=== PATIENT | female | born 2000 | race Two or more races ===

== ENCOUNTER 2025-02-27 08:11 | Outpatient (AMB) | payer MEDICAID, SELFPAY ==
--- NOTE | 2025-02-27 08:13 | AMB.OBINITIA ---
Vital Signs 02/27/25 08:24 Height 1.63 m Height Method Stated Weight 68.209 kg Weight Measurement Method Standing Scale BMI 25.8 BP 122/84 Blood Pressure Source Automatic Cuff Blood Pressure Location Left Upper Arm Position Sitting Respiration 18 Pulse 98 Pulse Source Monitor Temp 97.8 F Temp Source Oral Pulse Oximetry (%) 99 Oxygen Delivery Method Room Air Allergies/Home Meds Allergies & Medications Allergies No Known Allergies Allergy (Verified 02/27/25 08:25) Medication Reconciliation No Known Home Medications 02/27/25 [History Confirmed 02/27/25] Intake Visit Data Collection New Patient or Established: New Patient (never been to [facility]) Reason for Visit:: TRANSFER INITIAL CARE Seen by Clinical Staff ONLY (RN/MA): No Vocational Psychologist Required: No Do You Feel Safe at Home: Yes Authorities Contacted: N/A PCP or OBGYN visit in last 3 months: Yes Hx Now: Yes Are you currently on any form of Control: No Last menstrual period: 07/20/24 Pain Present Currently: No Pain Scale Used: Delgado-Milligan/Numerical Pain scale:: 0 Smoking Status Smoking Status: Never smoker Immunizations Flu Vaccine in the Last 12 Months: No Flu Vaccine Exclusion Criteria: No Exclusion Criteria Questionnaires Covid-19 Vaccine Questionnaire Has patient been vacinated for Covid-19 Have you been vacinated for Covid-19: Yes PHQ-9 PHQ-2 Over the last 2 weeks, how often have you been bothered by any of the following problems? 1. Little interest or pleasure in doing things: not at all 2. Feeling down, depressed, or hopeless: not at all Total score: 0 PHQ-9 3. Trouble falling or staying asleep, or sleeping too much: Not at all 4. Feeling tired or having little energy: Not at all 5. Poor appetite or overeating: Not at all 6. Feeling bad about yourself - or that you are a failure or have let yourself or your family down: Not at all 7. Trouble concentrating on things, such as reading the newspaper or watching television: Not at all 8. Moving or speaking so slowly that other people could have noticed? - Or the opposite - being so fidgety or restless that you have been moving around a lot more than usual: not at all 9. Thoughts that you would be better off or of hurting yourself in some way: Not at all Total score: 0 Source: Developed by Drs. Ben Altamirano, Fiordaliza Kennedy, Jonathan Restrepo and colleagues, with an educational daivd from [employer]. Depression screen completed yes Social History Living Situation History Marital Status: Lives With: Family Housing: House Tobacco History Smoking Status: Never smoker Second Hand Smoke Exposure: No Alcohol History Alcohol Intake: Never Domestic Abuse History Do You Feel Safe at Home: Yes History of Present Illness HPI Narrative This is a 24-year-old 1 para 0 for OBI. Patient is a transfer from Dr. Toth's office at 32 weeks with records. She reports that she has not had any problems with the so far. She began her care while she was in [place]. She was given a Tdap around 26 weeks. Her last period is July 14, 2024. And this gives due date April 20, 2025. She had her first ultrasound here at [facility] on February 06, 2025. Patient was 30 weeks and this confirmed dates. Normal anatomy normal fluid was shown. Patient denies any existence of chronic illnesses. Denies social habits. Denies surgeries. Patient is O+, antibody screen negative, RPR nonreactive, rubella nonimmune, HIV negative, hepatitis B-, hep C negative, GC and Chlamydia negative. Her carrier screens were negative. She had normal 1 hour. And her A1c 5 point. Reports good movement. Denies leaking, bleeding, contractions OB Initial Visit OB Flowsheet OB Flowsheet Initial Weight: Not Recorded Date <del>?</del> EGA Weight BP Alb Glu CTX Pres Fundal ht FHR Mov Dilation Station Effacement Hx Notes Visit Note 02/27/25 <del>?</del> 32w 4d 68.209 kg 122/84 absent unknown 31 145 active 24-year-old 1 para [address] Toth's office with records. Her last. July 14, 2024. Estimated due date June 21, 2024. Patient had a 30-week ultrasound January that confirmed dates. She reports movement. Denies leaking, bleeding, contractions Reviewed labs with patient. Discussed labor precautions. Advised kick count twice a day. Increase fluids. Return in 2 weeks OB Menstrual History Menstrual reliability: definite Flow: normal Menstrual regularity: regular Monthly: Yes Age at menarche: 14 On control pills at conception: No Associated symptoms (LMP): Denies amenorrhea, nausea, vomiting, fatigue, breast tenderness, urinary frequency, irritability, bloating or other OB History : 1 # of Living Children: 0 Infection History & Risk Evaluation History of STDs: none Genetic Screening & History Genetic Screening/Teratology Counseling - Includes patient, baby's father, or anyone in either family with: 1. Patient's age 35 years or older as of estimated date of delivery: No 2. Thalassemia (Malawian, Kiswahili, Mediterranean, or Background); MCV less than 80: No 3. Neural Tube Defect (Meningomyelocele, Spina Bifida, or Anencephaly): No 4. Congenital Heart Defect: No 5. Down Syndrome: No 6. Dayday-Sachs (Ashkenazi Rastafarian, Cajun, Latvian [place]): No 7. Hernandez Disease (Ashkenazi Rastafarian): No 8. Familial Dysautonomia (Ashkenazi Rastafarian): No 9. Sickle Cell Disease or Trait (): No 10. Hemophilia or other blood disorders: No 11. Muscular Dystrophy: No 12. Cystic Fibrosis: No 13. [place]'s Chorea: No 14. Mental Retardation/Autism: No 15. Other inherited genetic or chromosomal disorder: No 16. Maternal Metabolic Disorder (EG,TYPE 1 Diabetes, PKU): No 17. Patient or baby's father had a child with defects not listed above: No 18. Recurrent loss or a stillbirth: No 19. Medications (including supplements, vitamins, herbs or otc drugs)/illicit/recreational drugs/alcohol since last menstrual period: No 20. Any other: No Infection History 1. Live with someone with TB or exposed to TB: No 2. Rash or viral illness since last menstrual period: No 3. Hepatitis B,C: No Other (see comments) Source: [employer] Review of Systems Review of Systems Systems Reviewed: All systems reviewed, normal except as documented Constitutional Constitutional: Denies fatigue Gastrointestinal Gastrointestinal: Denies bloating, Denies nausea and Denies vomiting Genitourinary Genitourinary: Denies amenorrhea and Denies urinary frequency Psychiatric Psychiatric: Denies irritability Endocrine Endocrine: Denies fatigue Exam General Limitations: no limitations General Appearance: alert, in no apparent distress, comfortable, cooperative, healthy appearing, well developed and well groomed Head Head exam: atraumatic, normocephalic and normal inspection ENT ENT exam: Present normal exam, normal oropharynx and mucous membranes moist Chest Chest inspection: Present normal inspection and symmetric chest wall rise Resp Respiratory exam: Present normal lung sounds bilaterally Card Cardiovascular exam: Present regular rate, normal rhythm and normal heart sounds Abdominal Abdominal exam: Present soft and normal bowel sounds Extremities Extremities exam: Present normal inspection and full ROM Psych Psychiatric exam: Present normal affect and normal mood Office Procedures OBC Clinic LOC & Office Proc's Nursing/Assessment Patient Status: Initial/New Patient OB Clinic Nursing Assessment: Medication Reconciliation, Update PMH in EMR and Vital Signs OB Clinic Coordination of Care: Complex Care and Chronic Disease 1-5, Consent,records obtained, informed consent, Education Simp Pt/Fam, 1 Ins Authorization, Lab and Imaging orders, Results/Orders obtained and Staff clarify orders Special Needs: Heart tones New Patient Charge New Patient Point Assignment: [id number] New Patient Point Charge: MODEL MAKER SCALE Level 4 ([id number]) Assessment & Plan Diagnosis / Problem List (1) High risk case management patient in third trimester: Status: Acute Plan Review records and dates with patient. Discussed labor precautions. Kick count twice a day. Continue prenatals. Return in 2 weeks at which Additional Plan Follow Up: 2 Weeks (obc)
[2025-02-27 08:24] VITALS: BP 122/84; PULSE 98; RESP 18; TEMP 36.6; O2SAT 99; BMI 25.8
== END 2025-02-27 09:06 | disposition home or self-care (01) ==
LOC: HODSOBC 08:11
PROVIDERS: Supervising Provider Advanced Practice Midwife; Visit Provider Advanced Practice Midwife
DX: O09.93 Supervision of high risk pregnancy, unspecified, third trimester (principal); Z3A.32 32 weeks gestation of pregnancy
CPT/HCPCS: 99204; G0463

== ENCOUNTER 2025-03-13 08:01 | Outpatient (AMB) | payer MEDICAID, SELFPAY ==
--- NOTE | 2025-03-13 08:04 | OBCLNT_ITS ---
Vital Signs 03/13/25 08:05 Height 1.63 m Height Method Stated Weight 70.477 kg Weight Measurement Method Standing Scale BMI 26.5 BP 114/76 Blood Pressure Source Automatic Cuff Blood Pressure Location Right Upper Arm Position Sitting Respiration 18 Pulse 111 H Pulse Source Monitor Temp 98.1 F Temp Source Temporal Artery Scan Pulse Oximetry (%) 98 Oxygen Delivery Method Room Air Allergies/Home Meds Allergies & Medications Allergies No Known Allergies Allergy (Verified 03/13/25 08:07) Medication Reconciliation No Known Home Medications 02/27/25 [History Confirmed 03/13/25] Intake Visit Data Collection New Patient or Established: Established Patient (seen at [facility] within 3 years) Reason for Visit:: OBC Seen by Clinical Staff ONLY (RN/MA): No Drilling Supervisor Required: No Do You Feel Safe at Home: Yes Authorities Contacted: N/A PCP or OBGYN visit in last 3 months: Yes Date of Last PCP or OBGYN visit: 02/27/25 Hx Now: Yes Are you currently on any form of Control: No Pain Present Currently: No Pain Scale Used: Delgado-Milligan/Numerical Pain scale:: 0 Smoking Status Smoking Status: Never smoker Immunizations Flu Vaccine in the Last 12 Months: No Flu Vaccine Exclusion Criteria: No Exclusion Criteria Questionnaires Covid-19 Vaccine Questionnaire Has patient been vacinated for Covid-19 Have you been vacinated for Covid-19: Yes PHQ-9 PHQ-2 Over the last 2 weeks, how often have you been bothered by any of the following problems? 1. Little interest or pleasure in doing things: not at all 2. Feeling down, depressed, or hopeless: not at all Total score: 0 PHQ-9 3. Trouble falling or staying asleep, or sleeping too much: Not at all 4. Feeling tired or having little energy: Not at all 5. Poor appetite or overeating: Not at all 6. Feeling bad about yourself - or that you are a failure or have let yourself or your family down: Not at all 7. Trouble concentrating on things, such as reading the newspaper or watching television: Not at all 8. Moving or speaking so slowly that other people could have noticed? - Or the opposite - being so fidgety or restless that you have been moving around a lot more than usual: not at all 9. Thoughts that you would be better off or of hurting yourself in some way: Not at all Total score: 0 If you checked off any problems, how difficult have these problems made it for you to do your work, take care of things at home, or get along with other people?: not difficult at all Source: Developed by Drs. Ben Altamirano, Fiordaliza Kennedy, Jonathan Restrepo and colleagues, with an educational david from [employer]. Depression screen completed yes Social History Living Situation History Marital Status: Lives With: Family Housing: House Tobacco History Smoking Status: Never smoker Second Hand Smoke Exposure: No Alcohol History Alcohol Intake: Never Domestic Abuse History Do You Feel Safe at Home: Yes Care OB Visit Log OB Flowsheet Initial Weight: Not Recorded Date -?-?-?-?-?-?-?-?-?-?-?-?- EGA Weight BP Alb Glu CTX Pres Fundal ht FHR Mov Dilation Station Effacement Hx Notes Visit Note 02/27/25 -?-?-?-?--?-?-?-?-?-?-?-?- 32w 4d 68.209 kg 122/84 absent unknown 31 145 active 24-year-old 1 para [address] Toth's office with records. Her last. July 14, 2024. Estimated due date June 21, 2024. Patient had a 30-week ultrasound January that confirmed dates. She reports movement. Denies leaking, bleeding, contractions Reviewed labs with patient. Discussed labor precautions. Advised kick count twice a day. Increase fluids. Return in 2 weeks OB 03/13/25 -?-?-?-?-?-?-?-?-?-?-?-?- 34w 4d 70.477 kg 114/76 absent cephalic 33 145 active Fetus active per patient. Denies leaking, bleeding, contractions. Discussed weight. Discussed labor precautions. Kick count twice a day. Reviewed diet a bit with patient and GBS next visit ADOLFO Calculator Estimated Delivery Date Method Current WG Current Estimate 04/20/25 LMP (Certain) 34w 4d Other Estimates 04/13/25 Ultrasound #1 35w 4d 04/20/25 Manual 34w 4d final adolfo: 04/09 07/04 Notes Visit Date: 02/27/25 Last Updated by: Yesenia Sanders CNM sono: 02/06/25: IUP 30 week, EDC: 04/13/25. O+,abs-. rpr;;nr, rub NI, HBSAG-,HIV-,HC-, GC/CT-. 1 hr wnl, carrier screen-, A1: 5.2 Office Procedures OBC Clinic LOC & Office Proc's Nursing/Assessment Patient Status: Established Patient OB Clinic Nursing Assessment: Medication Reconciliation, Update PMH in EMR and Vital Signs OB Clinic Coordination of Care: Complex Care and Chronic Disease 1-5, Education Complex Pt/Fam, Consent,records obtained, informed consent and Staff clarify orders Special Needs: Heart tones Established Patient Charge Established Patient Point Assignment: 120 Established Patient Point Charge: EP Level 4 (120-155) Assessment & Plan Diagnosis / Problem List (1) High risk case management patient in third trimester: Status: Acute Plan Discussed labor precautions and labor precautions. Kick count twice a day. Continue prenatals. Increase fluids. Discussed danger signs and symptoms and ER precautions return the week OB check Ibutop and Dr. Hernandez Additional Plan Follow Up: 1 Week (obc)
[2025-03-13 08:05] VITALS: BP 114/76; PULSE 111; RESP 18; TEMP 36.7; O2SAT 98; BMI 26.5
== END 2025-03-13 09:02 | disposition home or self-care (01) ==
LOC: HODSOBC 08:01
PROVIDERS: Supervising Provider Advanced Practice Midwife; Visit Provider Advanced Practice Midwife
DX: O09.93 Supervision of high risk pregnancy, unspecified, third trimester (principal); Z3A.34 34 weeks gestation of pregnancy
CPT/HCPCS: 99214; G0463

== ENCOUNTER 2025-03-29 08:12 | Outpatient (AMB) | payer MEDICAID, SELFPAY ==
[2025-03-29 08:25] VITALS: BP 125/85; PULSE 98; RESP 18; TEMP 36.6; O2SAT 98; BMI 27.3
--- NOTE | 2025-03-29 08:25 | OBCLNT_ITS ---
Vital Signs 03/29/25 08:25 Height 1.63 m Height Method Stated Weight 72.688 kg Weight Measurement Method Standing Scale BMI 27.3 BP 125/85 H Blood Pressure Source Automatic Cuff Blood Pressure Location Left Upper Arm Position Sitting Respiration 18 Pulse 98 Pulse Source Monitor Temp 97.8 F Temp Source Oral Pulse Oximetry (%) 98 Oxygen Delivery Method Room Air Allergies/Home Meds Allergies & Medications Allergies No Known Allergies Allergy (Verified 03/29/25 08:25) Medication Reconciliation No Known Home Medications 02/27/25 [History Confirmed 03/29/25] Immunizations Immunizations Flu Vaccine in the Last 12 Months: No Flu Vaccine Exclusion Criteria: Refused by Patient Care OB Visit Log OB Flowsheet Initial Weight: Not Recorded Date -?-?-?-?-?-?-?-?-?-?-?-?- EGA Weight BP Alb Glu CTX Pres Fundal ht FHR Mov Dilation Station Effacement Hx Notes Visit Note 02/27/25 -?-?-?-?-?-?-?-?-?-?-?-?- 32w 4d 68.209 kg 122/84 absent unknown 31 145 active 24-year-old 1 para [address] Toth's office with records. Her last. July 14, 2024. Estimated due date June 21, 2024. Patient had a 30-week ultrasound January that confirmed dates. She reports movement. Denies leaking, bleeding, contractions Reviewed labs with patient. Discussed labor precautions. Advised kick count twice a day. Increase fluids. Return in 2 weeks OB 03/13/25 -?-?-?-?-?-?-?-?-?-?-?-?- 34w 4d 70.477 kg 114/76 absent cephalic 33 145 active Fetus active per patient. Denies leaking, bleeding, contractions. Discussed weight. Discussed labor precautions. Kick count twice a day. Reviewed diet a bit with patient and GBS next visit 03/29/25 -?-?-?-?-?-?-?-?-?-?-?-?- 36w 6d 72.688 kg 125/85 absent cephalic 36 145 active Patient had many questions about labor and . Discussed reports good movement. Denies leaking, bleeding, contractions GBS today. We discussed all her questions about labor and signs symptoms of labor and ER precautions and comfort measures during labor and pain management return in a week OB check ADOLFO Calculator Estimated Delivery Date Method Current WG Current Estimate 04/20/25 LMP (Certain) 36w 6d Other Estimates 04/13/25 Ultrasound #1 37w 6d 04/20/25 Manual 36w 6d final adolfo: 04/09 07/04 Notes Visit Date: 02/27/25 Last Updated by: Yesenia Sanders CNM sono: 02/06/25: IUP 30 week, EDC: 04/13/25. O+,abs-. rpr;;nr, rub NI, HBSAG-,HIV-,HC-, GC/CT-. 1 hr wnl, carrier screen-, A1: 5.2 Office Procedures OBC Clinic LOC & Office Proc's Nursing/Assessment Patient Status: Established Patient OB Clinic Nursing Assessment: Medication Reconciliation, Update PMH in EMR and Vital Signs OB Clinic Coordination of Care: Complex Care and Chronic Disease 1-5, Consent,records obtained, informed consent, Education Simp Pt/Fam, 1 Ins Authorization, Lab and Imaging orders, Results/Orders obtained and Staff clarify orders Special Needs: Heart tones Established Patient Charge Established Patient Point Assignment: 150 Established Patient Point Charge: EP Level 4 (120-155) Assessment & Plan Diagnosis / Problem List (1) High risk case management patient in third trimester: Status: Acute Plan Discussed labor precautions. Discussed labor management. Discussed danger signs symptoms ER precautions. And comfort measures during labor and GBS today Additional Plan Follow Up: 1 Week (obc)
== END 2025-03-29 09:15 | disposition home or self-care (01) ==
LOC: HODSOBC 08:12
PROVIDERS: Supervising Provider Advanced Practice Midwife; Visit Provider Advanced Practice Midwife
DX: O09.93 Supervision of high risk pregnancy, unspecified, third trimester (principal); Z3A.36 36 weeks gestation of pregnancy; Z36.85 Encounter for antenatal screening for Streptococcus B; Z28.21 Immunization not carried out because of patient refusal
CPT/HCPCS: 99214; G0463

== ENCOUNTER 2025-04-09 08:13 | Outpatient (AMB) | payer MEDICAID, SELFPAY ==
[2025-04-09 08:32] VITALS: BP 121/82; PULSE 101; RESP 18; TEMP 36.7; O2SAT 98; BMI 27.7
--- NOTE | 2025-04-09 08:32 | OBCLNT_ITS ---
Vital Signs 04/09/25 08:32 Height 1.63 m Height Method Stated Weight 73.595 kg Weight Measurement Method Standing Scale BMI 27.7 BP 121/82 Blood Pressure Source Automatic Cuff Blood Pressure Location Right Upper Arm Position Sitting Respiration 18 Pulse 101 H Pulse Source Monitor Temp 98.1 F Temp Source Temporal Artery Scan Pulse Oximetry (%) 98 Oxygen Delivery Method Room Air Allergies/Home Meds Allergies & Medications Allergies No Known Allergies Allergy (Verified 04/09/25 08:34) Medication Reconciliation No Known Home Medications 02/27/25 [History Confirmed 04/09/25] Immunizations Immunizations Flu Vaccine in the Last 12 Months: No Flu Vaccine Exclusion Criteria: Refused by Patient Care OB Visit Log OB Flowsheet Initial Weight: Not Recorded Date -?-?-?-?-?-?-?-?-?-?-?-?- EGA Weight BP Alb Glu CTX Pres Fundal ht FHR Mov Dilation Station Effacement Hx Notes Visit Note 02/27/25 -?-?-?-?-?-?-?-?-?-?-?-?- 32w 4d 68.209 kg 122/84 absent unknown 31 145 active 24-year-old 1 para [address] Toth's office with records. Her last. July 14, 2024. Estimated due date June 21, 2024. Patient had a 30-week ultrasound January that confirmed dates. She reports movement. Denies leaking, bleeding, contractions Reviewed labs with patient. Discussed labor precautions. Advised kick count twice a day. Increase fluids. Return in 2 weeks OB 03/13/25 -?-?-?-?-?-?-?-?-?-?-?-?- 34w 4d 70.477 kg 114/76 absent cephalic 33 145 active Fetus active per patient. Denies leaking, bleeding, contractions. Discussed weight. Discussed labor precautions. Kick count twice a day. Reviewed diet a bit with patient and GBS next visit 03/29/25 -?-?-?-?-?-?-?-?-?-?-?-?- 36w 6d 72.688 kg 125/85 absent cephalic 36 145 active Patient had many questions about labor and . Discussed reports good movement. Denies leaking, bleeding, contractions GBS today. We discussed all her questions about labor and signs symptoms of labor and ER precautions and comfort measures during labor and pain management return in a week OB check 04/09/25 -?-?-?-?-?-?-?-?-?-?-?-?- 38w 3d 73.595 kg 121/82 absent cephalic 37 145 active Reports good movement. Occasional pressure. Denies leaking or bleeding. Discussed GBS results. Discussed labor precautions and kick count. And danger signs. Comfort measures for labor. Return in a week OB check ADOLFO Calculator Estimated Delivery Date Method Current WG Current Estimate 04/20/25 LMP (Certain) 38w 3d Other Estimates 04/13/25 Ultrasound #1 39w 3d 04/20/25 Manual 38w 3d final adolfo: 04/09 07/04 Notes Visit Date: 04/09/25 Last Updated by: Yesenia Sanders CNM GBS- Visit Date: 02/27/25 Last Updated by: Yesenia Sanders CNM sono: 02/06/25: IUP 30 week, EDC: 04/13/25. O+,abs-. rpr;;nr, rub NI, HBSAG-,HIV-,HC-, GC/CT-. 1 hr wnl, carrier screen-, A1: 5.2 Office Procedures OBC Clinic LOC & Office Proc's Nursing/Assessment Patient Status: Established Patient OB Clinic Nursing Assessment: Medication Reconciliation, Update PMH in EMR and Vital Signs OB Clinic Coordination of Care: Complex Care and Chronic Disease 1-5, Education Complex Pt/Fam, Consent,records obtained, informed consent, Lab and Imaging orders, Results/Orders obtained and Staff clarify orders Special Needs: Heart tones Established Patient Charge Established Patient Point Assignment: 140 Established Patient Point Charge: EP Level 4 (120-155) Assessment & Plan Diagnosis / Problem List (1) High risk case management patient in third trimester: Status: Acute Plan Discussed labor precautions. Kick count twice a day. Discussed danger signs symptoms. Return in a week OB check Additional Plan Follow Up: 1 Week (obc)
== END 2025-04-09 08:40 | disposition home or self-care (01) ==
LOC: HODSOBC 08:13
PROVIDERS: Supervising Provider Advanced Practice Midwife; Visit Provider Advanced Practice Midwife
DX: O09.93 Supervision of high risk pregnancy, unspecified, third trimester (principal); Z3A.38 38 weeks gestation of pregnancy; Z28.21 Immunization not carried out because of patient refusal
CPT/HCPCS: 99214; G0463

== ENCOUNTER 2025-04-15 15:48 | Observation (INO) | payer MEDICAID, SELFPAY ==
[2025-04-15] VITALS (7 sets, daily range): BP systolic 128–138; BP diastolic 77–87; PULSE 101–125; RESP 18–99; TEMP 37.1; O2SAT 98–100; BMI 29.3
== END 2025-04-15 19:37 | disposition home or self-care (01) ==
LOC: S4SX 16:11 → S4NX 17:45 → S4SX 17:48
PROVIDERS: Admitting Provider Obstetrics & Gynecology; Visit Provider Obstetrics & Gynecology
DX: O47.1 False labor at or after 37 completed weeks of gestation (principal); Z3A.39 39 weeks gestation of pregnancy
CPT/HCPCS: 59025; 59899

== ENCOUNTER 2025-04-16 08:28 | Inpatient (IN) | payer MEDICAID, SELFPAY ==
[2025-04-16] VITALS (213 sets, daily range): BP systolic 109–158; BP diastolic 53–94; PULSE 91–170; RESP 17–20; TEMP 36.8–38; O2SAT 93–100; BMI 28.7
[2025-04-16] MEDS: RINGERS LACTATED 1000 ML 1,000 ML 100 ML IV ×3 (09:00→10:58)
[2025-04-16 09:21] LABS: Basophils # (Auto) 0.0 Thou/mm3 (0.0-0.2); Basophils % (Auto) 0 % (0-2.5); Eosinophils # (Auto) 0.0 Thou/mm3 (0.0-0.5); Eosinophils % (Auto) 0 % (0-10); Hematocrit 41.7 % (36.0-46.0); Hemoglobin 13.6 g/dL (12.0-16.0); Immature Granulocytes Auto 0.06 Thou/mm3 (0.00-0.00); Lymphocytes # (Auto) 1.4 Thou/mm3 (1.0-4.8); Lymphocytes % (Auto) 9 % (10-50); Mean Corpuscular HGB Conc 32.6 g/dl (31.0-37.0); Mean Corpuscular Hemoglobin 28.1 pg (25.0-35.0); Mean Corpuscular Volume 86 fL (80-100); Monocytes # (Auto) 0.8 Thou/mm3 (0.0-0.8); Monocytes % (Auto) 5 % (0-12); Neutrophils # (Auto) 13.4 Thou/mm3 (1.8-7.7); Neutrophils % (Auto) 85 % (37-80); Nucleated Red Blood Cell # 0.00 Thou/mm3 (0.00-0.00); Nucleated Red Blood Cell % 0 /100 WBC (0); Platelet Count 224 Thou/mm3 (140-440); RDW Standard Deviation 48.8 fL (36.4-46.3); Red Blood Count 4.84 Miln/mm3 (4.00-5.20); White Blood Count 15.7 Thou/mm3 (3.6-11.0)
[2025-04-16] MEDS: fentaNYL CIT INJ 50 mCg/ML AMP 2ML 100 MCG IV (09:28)
[2025-04-16 09:57] LABS: Syphilis Nonreactive (Nonreactive)
--- NOTE | 2025-04-16 10:52 | EKG_ITS ---
[facility] Test Date: 2025-04-16 Pat Name: OTILIA PETERSON [facility] Physical Therapy Aide: ANDREW : 2000 Requested By: Kimmie Martinez Order Number: [id number] Reading MD: Kimmie Martinez Measurements Intervals [place] Rate: 120 P: 55 MD: 153 QRS: 71 QRSD: 76 T: 30 QT: 305 QTc: 432 Interpretive Statements SINUS TACHYCARDIA ABNORMAL RHYTHM ECG No previous ECG available for comparison /store/S0/[id number]/ecg/[id number].pdf
[2025-04-16 11:20] LABS: Amphetamine/Metham Scrn,Ur OB Negative (Negative); Benzoylecgonine Screen, Ur OB Negative (Negative); Opiate Screen,Urine OB Negative (Negative); THC Screen,Urine OB Negative (Negative)
[2025-04-16 15:22] LABS: Thyroid Stimulating Hormone 1.75 uIU/mL (0.55-4.78)
[2025-04-16 15:41] LABS: COVID-19 Antigen (In-House) Negative (Negative)
[2025-04-16 16:17] LABS: Influenza A Ag Negative; Influenza B Ag Negative
--- NOTE | 2025-04-16 17:16 | PD.LDHP ---
Documentation for date of: 04/16/25 OB Labor/Induct. HPI History of Present Illness Chief complaint: labor : 1 Para: 0 Term pregnancies: 0 pregnancies: 0 Living children: 0 History of Abortions: Spontaneous and Elective: 0 History of Vaginal deliveries: 0 History of sections: No History of : No ADOLFO: 04/20/25 Gestational Age (weeks): 39 Gestational Age (days): 3 History of present illness: contractions History of Present Dating criteria: based on LMP only Adequate Care: Yes Ultrasounds: normal mid trimester US Obstetrical complications: none Medical complications: none Labs Maternal Blood Type: O Pos Labs: Negative: RPR, Hepatitis B, Rubella Titre, HIV, Chlamydia, Gonorrhea and Group Beta Strep and Unknown: Herpes Type 1, Herpes Type 2 and Covid-19 Review of Systems Review of Systems Systems Reviewed: All systems reviewed, normal except as documented Narrative Review of Systems: has had a fast pulse rate / asymptomatic between 120 to occ at 140bpm Past Medical History Surgical History SURGICAL: Negative Section Meds Home Medications and Allergies Home Medications ?Medication ?Instructions ?Recorded ?Confirmed ?Type vits no.130-ferrous fum 1 tab PO DAILY 04/15/25 04/16/25 History 27 mg iron-folic acid 800 mcg tablet ( Vitamin) Allergies Allergy/AdvReac Type Severity Reaction Status Date / Time No Known Allergies Allergy Verified 04/16/25 09:19 OB Exam Physical Exam Vital signs: Temp Pulse Resp BP Pulse Ox 98.8 F 130 H 18 131/82 H 95 04/16/25 16:09 04/16/25 17:02 04/16/25 16:09 04/16/25 17:02 04/16/25 17:15 Narrative: Size equal to dates uterus non tender regular/ contractions non tender FHR is category 1 feta presentation is vertex cervix complete and AROM done / clear amniotic fluid OB Results Labs 04/16/25 19:25 04/16/25 19:25 Labs: Short CBC 04/16/25 Range/Units 08:50 WBC 15.7 H (3.6-11.0) Thou/mm3 Hgb 13.6 (12.0-16.0) g/dL Hct 41.7 (36.0-46.0) % Plt Count 224 (140-440) Thou/mm3 OB Assessment & Plan Assessment and Plan (1) High risk case management patient in third trimester: Status: Acute (2) Tachycardia: Status: Acute Additional Plan Induction method: none Plan: anticipate NVD Additional Plan Comment: evaluation for flu/ covid , thyroid all negative patient is asymtomatic and anticipate vaginal delivery soon
--- NOTE | 2025-04-16 19:10 | XR_ITS ---
EXAMINATION: AP chest single view TECHNIQUE: AP portable semiupright chest single view Date and time: April,1929 hours INDICATIONS: Sepsis protocol. FINDINGS: Normal heart size Lungs are clear. Intact osseous structures. IMPRESSION: No active disease
--- NOTE | 2025-04-16 19:10 | EKG_ITS ---
[facility] Test Date: 2025-04-16 Pat Name: OTILIA PETERSON Department: [facility] Gender: Female Neon Sign Maker: YEIMI : 2000 Requested By: Kimmie Martinez Order Number: [id number] Reading MD: Kimmie Martinez Measurements Intervals [place] Rate: 117 P: 58 MI: 112 QRS: 76 QRSD: 69 T: 35 QT: 314 QTc: 439 Interpretive Statements SINUS TACHYCARDIA WITH SHORT MI INTERVAL ABNORMAL RHYTHM ECG Compared to ECG 04/16/2025 11:32:52 Short MI interval now present /[id number]
[2025-04-16] MEDS: ACETAMINOPHEN IVPB 1,000 MG/100 ML VIAL 250 MG IV (19:21)
[2025-04-16] MEDS: SODIUM CHLORIDE 0.9% 1000 ML 1,000 ML 999 ML IV (19:33)
[2025-04-16 19:35] LABS: Lactate (Lactic Acid) 1.6 mMol/L (0.4-2.0)
[2025-04-16 19:39] LABS: Collection Type, Urine Clean Catch
[2025-04-16 19:44] LABS: Basophils # (Auto) 0.1 Thou/mm3 (0.0-0.2); Basophils % (Auto) 0 % (0-2.5); Eosinophils # (Auto) 0.0 Thou/mm3 (0.0-0.5); Eosinophils % (Auto) 0 % (0-10); Hematocrit 39.8 % (36.0-46.0); Hemoglobin 13.1 g/dL (12.0-16.0); Immature Granulocytes Auto 0.13 Thou/mm3 (0.00-0.00); Lymphocytes # (Auto) 2.2 Thou/mm3 (1.0-4.8); Lymphocytes % (Auto) 12 % (10-50); Mean Corpuscular HGB Conc 32.9 g/dl (31.0-37.0); Mean Corpuscular Hemoglobin 28.5 pg (25.0-35.0); Mean Corpuscular Volume 87 fL (80-100); Monocytes # (Auto) 1.3 Thou/mm3 (0.0-0.8); Monocytes % (Auto) 7 % (0-12); Neutrophils # (Auto) 13.8 Thou/mm3 (1.8-7.7); Neutrophils % (Auto) 79 % (37-80); Nucleated Red Blood Cell # 0.00 Thou/mm3 (0.00-0.00); Nucleated Red Blood Cell % 0 /100 WBC (0); Platelet Count 174 Thou/mm3 (140-440); RDW Standard Deviation 49.4 fL (36.4-46.3); Red Blood Count 4.60 Miln/mm3 (4.00-5.20); White Blood Count 17.5 Thou/mm3 (3.6-11.0)
[2025-04-16 19:51] LABS: Amorphous Crystals,Urine Present (Absent); Bilirubin,Urine Negative (Negative); Blood,Urine 3+ (Negative); Clarity,Urine Turbid (Clear/Hazy); Color,Urine Yellow (Lt Yel-Yel); Glucose, Urine Negative (Negative); Ketones,Urine 4+ (Negative); Leukocyte Esterase,Urine Positive (Negative); Nitrite,Urine Negative (Negative); PH,Urine 6.0 (5.0-7.0); Protein,Urine 2+ (Neg - Trace); RBC,Urine 2593 /hpf (0-3); Specific Gravity,Urine 1.026 (1.001-1.035); Squamous Epithelial Cell,Urine 1 /hpf (0-5); Urobilinogen,Urine Negative mg/dL (0.0-1.0); WBC,Urine 29 /hpf (0-5)
[2025-04-16] MEDS: OXYTOCIN in NS 20 units 20 UNIT/1,000 ML BAG 125 UNIT IV (19:51)
[2025-04-16 19:58] LABS: Alanine Aminotransferase 9 U/L (10-49); Albumin, Serum 4.2 gm/dL (3.5-5.0); Albumin/Globulin Ratio 1.6 (1.2-2.2); Alkaline Phosphatase 196 U/L (46-116); Anion Gap 14 (7-16); Aspartate Amino Transferase 22 U/L (0-34); BUN/Creatinine Ratio 8 Ratio (12-20); Bilirubin,Total 0.5 mg/dL (0.3-1.2); Blood Urea Nitrogen 5 mg/dL (9-23); Calcium 9.3 mg/dL (8.3-10.6); Calcium (Corrected) 9.3 mg/dL (8.5-10.1); Carbon Dioxide 19.9 mMol/L (20.0-31.0); Chloride 106 mMol/L (98-107); Creatinine (Component) 0.6 mg/dL (0.6-1.3); Estimated Creatinine Clearance 141.2 mL/min (>60); Globulin 2.6 gm/dL (2.3-3.5); Glucose 76 mg/dL (74-106); Osmolality,Calculated 275 (275-295); Potassium 3.5 mMol/L (3.4-5.1); Sodium 140 mMol/L (136-145); Total Protein 6.8 gm/dL (5.7-8.2); Troponin I < 0.002 ng/mL (0.0-0.045); eGFR > 60 See Note
[2025-04-16] MEDS: LIDOCAINE HCL 1% 20 ML VIAL INFL (20:05)
[2025-04-16] MEDS: MINERAL OIL 30 ML UDC TOP (20:05)
[2025-04-16] MEDS: BENZO/LANO/ALOE (Dermoplast) 60 GM CAN 1 SPRAY TOP (20:06)
[2025-04-16 20:07] LABS: INR 0.9 (0.9-1.3); Partial Thromboplastin Time 20.5 Seconds (22.0-36.0); Prothrombin Time 9.9 Seconds (9.0-12.2)
[2025-04-16] MEDS: PIPER/TAZO 3.375 GM PREMIX 3.375 GM/50 ML BAG IV (20:19)
[2025-04-16 20:27] LABS: B-Type Natriuretic Peptide 44 pg/mL (0-100)
--- NOTE | 2025-04-16 20:32 | PD.LDDELS ---
Data (Russell) Data Hx Section: No Maternal Blood Type: O Pos Labs: Negative: RPR, Hepatitis B, HIV and Group Beta Strep : 1 Term: 0 : 0 Livin Abortions: Spontaneous & Theraputic: 0 Delivery Data (Russell) Labor Data Initiation of labor: Augmentation Induction/Augmentation Agent: None ROM date: 04/16/25 ROM time: 17:03 Amniotic membrane rupture type: Artificial Amniotic fluid description: Clear Delivery Data Onset of labor date: 04/16/25 Onset of labor time: 11:00 Complete dilation date: 04/16/25 Complete dilation time: 15:15 delivery date: 04/16/25 delivery time: 19:51 Gestational age (days): 39 Placenta delivery date: 04/16/25 Placenta delivery time: 19:54 Stage 1 total time: Labor - Stage 1 Duration 4 hours and 15 minutes Delivered by: ARJUN Delivery nurse: Jaquan NINA RN. Neworn nurse: Miguel Angel PARHAM RN. Chemical Laboratory Scientist at delivery: No Support person(s) at delivery: PATIENT'S MOTHER Other staff at delivery: J Carlos FRAUSTO RNC. Elmira DUONG RN. Delivery Method Delivery method: Normal Vaginal Delivery Presentation: Vertex position: KARLA Anesthesia Type Anesthesia Type: Local and Epidural Delivery Room Medications Delivery room medications: Lidocaine (local) and Cytotec 800 MI Placenta Placenta delivery description: Spontaneous Cord blood sent to lab: Yes cord blood collection: Cord Blood Type Episiotomy Episiotomy description: None Lacerations #2: Perineal: 2nd degree Vaginal: 2nd degree (R side at 9 0'clock about 2 cm ) Perineal repair Sutures used for repair: other (2,0 vicryl for both lacerations repair ) EBL Estimated blood loss (ml): 200 Umbilical Cord cord description: 3 Vessels Complications Complications: none Data (Russell) Data order: 1 Bethune's gender: Female Identification band number: [id number] weight (gms): 3100 g Weight (pounds): 6 lbs and 13.3 ozs 1 minute: 9 5 minutes: 9 Additional Comments Additional comments: viable baby with a good cry
[2025-04-17] VITALS (7 sets, daily range): BP systolic 104–125; BP diastolic 66–81; PULSE 103–112; RESP 16–18; TEMP 36.8–37.6; O2SAT 98–100
[2025-04-17] MEDS: PIPER/TAZO 3.375 GM PREMIX 3.375 GM/50 ML BAG IV ×2 (02:15→08:30)
[2025-04-17] MEDS: RINGERS LACTATED 1000 ML 1,000 ML 100 ML IV (04:21)
[2025-04-17 05:32] LABS: Basophils # (Auto) 0.0 Thou/mm3 (0.0-0.2); Basophils % (Auto) 0 % (0-2.5); Eosinophils # (Auto) 0.0 Thou/mm3 (0.0-0.5); Eosinophils % (Auto) 0 % (0-10); Hematocrit 26.8 % (36.0-46.0); Immature Granulocytes Auto 0.08 Thou/mm3 (0.00-0.00); Lymphocytes # (Auto) 2.1 Thou/mm3 (1.0-4.8); Lymphocytes % (Auto) 15 % (10-50); Mean Corpuscular HGB Conc 32.5 g/dl (31.0-37.0); Mean Corpuscular Hemoglobin 28.6 pg (25.0-35.0); Mean Corpuscular Volume 88 fL (80-100); Monocytes # (Auto) 1.0 Thou/mm3 (0.0-0.8); Monocytes % (Auto) 7 % (0-12); Neutrophils # (Auto) 11.1 Thou/mm3 (1.8-7.7); Neutrophils % (Auto) 77 % (37-80); Nucleated Red Blood Cell # 0.00 Thou/mm3 (0.00-0.00); Nucleated Red Blood Cell % 0 /100 WBC (0); Platelet Count 159 Thou/mm3 (140-440); RDW Standard Deviation 50.4 fL (36.4-46.3); Red Blood Count 3.04 Miln/mm3 (4.00-5.20); White Blood Count 14.3 Thou/mm3 (3.6-11.0)
[2025-04-17 05:45] LABS: Hemoglobin 8.7 g/dL (12.0-16.0)
--- NOTE | 2025-04-17 10:33 | PD.LDPPPRG ---
Subjective Subjective Interval history: The patient is a 24-year-old -0-0-1 status post vaginal delivery last evening by Dr. Martinez about 1950. This morning, the patient is resting comfortably in bed with her mother at the bedside. The baby is getting a bath. Her predelivery hemoglobin was 13.1 ,postdelivery is at at 8.7. Patient denies dizziness or heavy bleeding. The plan will be to keep the baby the patient today as she delivered late and recheck a hemoglobin in the morning. I will go ahead and order IV iron. She is on antibiotics which can probably be discontinued this morning. She apparently had a low-grade fever at delivery. Today she reports she is voiding normally, tolerating a general diet and her bleeding is minimal. Exam Vital Signs Temp Pulse Resp BP Pulse Ox O2 Del Method 98.5 F 112 H 16 109/72 99 Room Air 04/17/25 07:47 04/17/25 07:47 04/17/25 07:47 04/17/25 07:47 04/17/25 07:47 04/17/25 07:47 Narrative Exam Fundus is firm nontender at umbilicus Objective Labs 04/17/25 05:00 04/16/25 19:25 Labs: Laboratory Results - last 24 hr 04/16/25 04/16/25 04/16/25 08:50 08:59 14:50 WBC RBC Hgb Hct MCV MCH MCHC RDW Std Deviation Plt Count Neut % (Auto) Lymph % (Auto) [place] % (Auto) Eos % (Auto) Baso % (Auto) Neut # (Auto) Lymph # (Auto) [place] # (Auto) Eos # (Auto) Baso # (Auto) Immature Gran # (Auto) Absolute Nucleated RBC Immature Gran % Nucleated RBC % PT INR APTT Sodium Potassium Chloride Carbon Dioxide Anion Gap BUN Creatinine Estim Creat Clear Calc eGFR BUN/Creatinine Ratio Glucose Calculated Osmolality Lactic Acid Calcium Corrected Calcium Total Bilirubin AST ALT Alkaline Phosphatase Troponin I B-Natriuretic Peptide Total Protein Albumin Globulin Albumin/Globulin Ratio TSH 1.75 Ur Collection Type Urine Color Urine Clarity Urine pH Ur Specific [place] Urine Protein Urine Glucose (UA) Urine Ketones Urine Blood Urine Nitrite Urine Bilirubin Urine Urobilinogen (Auto) Ur Leukocyte Esterase Urine RBC Urine WBC Ur Squamous Epith Cells Amorphous Crystals Urine Bacteria Urine Opiates Screen Negative U Amphetamin/Meth Scrn Negative U Cocaine Metab Screen Negative U Marijuana (THC) Screen Negative Influenza A (Rapid) Negative Influenza B (Rapid) Negative SARS-CoV-2 Ag (Rapid) Negative 04/16/25 04/16/25 04/17/25 19:20 19:25 05:00 WBC 17.5 H 14.3 H RBC 4.60 3.04 L Hgb 13.1 8.7 L D Hct 39.8 26.8 L D MCV 87 88 MCH 28.5 28.6 MCHC 32.9 32.5 RDW Std Deviation 49.4 H 50.4 H Plt Count 174 D 159 Neut % (Auto) 79 77 Lymph % (Auto) 12 15 [place] % (Auto) 7 7 Eos % (Auto) 0 0 Baso % (Auto) 0 0 Neut # (Auto) 13.8 H 11.1 H Lymph # (Auto) 2.2 2.1 [place] # (Auto) 1.3 H 1.0 H Eos # (Auto) 0.0 0.0 Baso # (Auto) 0.1 0.0 Immature Gran # (Auto) 0.13 H 0.08 H Absolute Nucleated RBC 0.00 0.00 Immature Gran % 1 H 1 H Nucleated RBC % 0 0 PT 9.9 INR 0.9 APTT 20.5 L Sodium 140 Potassium 3.5 Chloride 106 Carbon Dioxide 19.9 L Anion Gap 14 BUN 5 L Creatinine 0.6 Estim Creat Clear Calc 141.2 eGFR > 60 BUN/Creatinine Ratio 8 L Glucose 76 Calculated Osmolality 275 Lactic Acid 1.6 Calcium 9.3 Corrected Calcium 9.3 Total Bilirubin 0.5 AST 22 ALT 9 L Alkaline Phosphatase 196 H Troponin I < 0.002 B-Natriuretic Peptide 44 Total Protein 6.8 Albumin 4.2 Globulin 2.6 Albumin/Globulin Ratio 1.6 TSH Ur Collection Type Clean Catch Urine Color Yellow Urine Clarity Turbid A Urine pH 6.0 Ur Specific [place] 1.026 Urine Protein 2+ A Urine Glucose (UA) Negative Urine Ketones 4+ A Urine Blood 3+ A Urine Nitrite Negative Urine Bilirubin Negative Urine Urobilinogen (Auto) Negative Ur Leukocyte Esterase Positive Urine RBC 2593 H Urine WBC 29 H Ur Squamous Epith Cells 1 Amorphous Crystals Present A Urine Bacteria None Urine Opiates Screen U Amphetamin/Meth Scrn U Cocaine Metab Screen U Marijuana (THC) Screen Influenza A (Rapid) Influenza B (Rapid) SARS-CoV-2 Ag (Rapid) Assessment & Plan Problem List (1) care following vaginal delivery: Problem details: Patient is doing well. Remove one IV . Add IV iron. DC Zosyn. Probable discharge in the morning. Repeat CBC in the morning. Status: Acute Time Spent With Patient Time: Total time spent is greater than 50% in coordination of care (as documented) at patient's floor/unit and/or counseling patient: Time with patient: less than 15 minutes
[2025-04-17] MEDS: FERRIC SOD GLUC INJ 125 MG in SODIUM CHLORIDE 0.9% 100 ML 110 MG IV (11:33)
[2025-04-18 03:45] VITALS: BP 123/78; PULSE 107; RESP 16; TEMP 37.1; O2SAT 98
[2025-04-18 06:16] LABS: Basophils # (Auto) 0.0 Thou/mm3 (0.0-0.2); Basophils % (Auto) 0 % (0-2.5); Eosinophils # (Auto) 0.1 Thou/mm3 (0.0-0.5); Eosinophils % (Auto) 1 % (0-10); Hematocrit 26.0 % (36.0-46.0); Immature Granulocytes Auto 0.04 Thou/mm3 (0.00-0.00); Lymphocytes # (Auto) 2.1 Thou/mm3 (1.0-4.8); Lymphocytes % (Auto) 22 % (10-50); Mean Corpuscular HGB Conc 32.3 g/dl (31.0-37.0); Mean Corpuscular Hemoglobin 28.9 pg (25.0-35.0); Mean Corpuscular Volume 89 fL (80-100); Monocytes # (Auto) 0.7 Thou/mm3 (0.0-0.8); Monocytes % (Auto) 7 % (0-12); Neutrophils # (Auto) 6.5 Thou/mm3 (1.8-7.7); Neutrophils % (Auto) 69 % (37-80); Nucleated Red Blood Cell # 0.00 Thou/mm3 (0.00-0.00); Nucleated Red Blood Cell % 0 /100 WBC (0); Platelet Count 144 Thou/mm3 (140-440); RDW Standard Deviation 52.1 fL (36.4-46.3); Red Blood Count 2.91 Miln/mm3 (4.00-5.20); White Blood Count 9.5 Thou/mm3 (3.6-11.0)
[2025-04-18 06:17] LABS: Hemoglobin 8.4 g/dL (12.0-16.0)
[2025-04-18 08:00] VITALS: BP 121/75; PULSE 108; RESP 17; TEMP 36.8; O2SAT 99
[2025-04-18] MEDS: FERRIC SOD GLUC INJ 125 MG in SODIUM CHLORIDE 0.9% 100 ML 110 MG IV (08:32)
--- NOTE | 2025-04-18 09:44 | PD.LDDS ---
DS: Providers Provider Date of admission: 04/16/25 08:47 Primary care physician: Physician No Primary/Family Admitting Provider: Kimmie Martinez MD Attending Provider on Admission: Kimmie Martinez MD Consults: 04/16/25 21:05 Referral Routine Comment: Attending Provider on DC: Kimmie Martinez MD Discharging Provider: Kimmie Martinez MD DS: Diagnosis Discharge Diagnosis (1) care following vaginal delivery: Status: Acute (2) Vaginal delivery: Status: Acute Problem List Completed Was Problem List Reviewed/Reconciled?: Yes Summary/Hosp Course Brief History: contractions/ at 39.3 weeks Peripartum Data Delivery Method: Normal Vaginal Delivery Episiotomy Description: None complications: none 1: Disposition of : home Status at Discharge Cognitive/behavioral status at discharge: Patient had a normal vaginal delivery. care routine. She is doing well, VSS alert and oriented/normal insight and judgment/denies depression or anxiety No chest pain No shortness of breath No fever Back pain manageable/denies Moving all extremities No calf pain Ambulating pain managed by Tylenol and Motrin, normal Lochia average Voiding spontaneously Other medical issues none Other concerns none / patient will go back to see Dr Horton Planning to breast-feed/bottle Feed//both Counseled on breast-feeding Counseled on care and follow-up Functional status at discharge: independent ambulation Overall status at discharge: patient is progressing back to baseline Time Spent with Patient Time attestation: Total time spent providing and/or coordinating discharge services: Time spent: Less than 30 minutes Specific discharge activities: pelvic rest x 6 weeks Exam Vital Signs Temp Pulse Resp BP Pulse Ox O2 Del Method 98.2 F 108 H 17 121/75 99 Room Air 04/18/25 08:00 04/18/25 08:00 04/18/25 08:00 04/18/25 08:00 04/18/25 08:00 04/18/25 08:00 Narrative Exam alert x3 chest clear CVS RRR NO thyromegaly Uterus is nontender Uterus is firm/ appropriate size Just below the umbilicus Bowel sounds present Abdomen soft Appropriately tender No calf tenderness Edema mild Discharge Plan Plan Patient Disposition: HOME (Self Care) Patient condition on transfer: Stable Prescriptions/Referrals Prescriptions/Med Rec: New ibuprofen 400 mg Tablet 800 mg PO Q8H PRN (Reason: uterine cramping) Qty: 30 0RF No Action Vitamin 27 mg iron- 800 mcg tablet 1 tab PO DAILY Referrals: No Primary/Family,Physician [Primary Care Provider] Patient/Caregiver Discharge Instructions Discharge Activity: activity as tolerated Other Discharge Activity Instructions:: pelvic rest x 6 weeks / follow up with her ob in 4 to 6 weeks Other Discharge Diet Instructions: regular Education Materials: After a Vaginal , After Delivery Concerns Print Language: Telugu Stand Alone Forms: [employer]iti Award Info., Patient Portal Info Letter Discharge Order Discharge Orders: Discharge (Routine); Ordered 04/18/25 Ordered By: Kimmie Martinez Planned Discharge Date 04/18/25
--- NOTE | 2025-04-18 10:13 | PC.SS ---
PACK PRESS OPERATOR conducted bedside contact with the patient to address nursing referral indicating patient was late to care at 29 weeks.? PACK PRESS OPERATOR introduced self and role.? PACK PRESS OPERATOR reviewed basis of referral.? Patient confirmed late to care (29 weeks) due to the patient residing in [place] during the initial stage of .? Patient informed PACK PRESS OPERATOR of receiving care in [place] during that time.? [place] the [place] the patient obtained OB services from [facility].? Patient reports consistency with OB services.? , Shahida; is the patient?s first child and was delivered naturally.? Patient plans on the patient.? FOB, Panfilo Cortez; is currently in [place].? Patient is aligned with WIC.? Patient is not receiving TANF or SNAP.? Patient denies history of alcohol/drug abuse.? Patient denies CWS intervention.? Patient denies episodes of domestic violence.? Patient denies possessing a history of mental health, reports no current possession of depression or anxiety.? Patient has access to appropriate supplies and equipment; to include a car seat.? Mother will provide transportation upon discharge.? Patient describes possessing support system consisting of parents and extended family.? PACK PRESS OPERATOR provided the patient with community resources to include Parenting Network and Warm Line.? No further intervention required at this time, elementary school social worker will be available to address any further concerns.? PACK PRESS OPERATOR updated bedside nurse.?
--- NOTE | 2025-04-18 11:08 | CHAP ---
Patient was visited by a Spiritual Care Volunteer on 04/17/2025 between 0850 and 1200 and received comfort, encouragement and/or prayer. Patient also received a blessing on infant and family.
== END 2025-04-18 15:15 | disposition home or self-care (01) | DRG 560 ==
LOC: S4SX 13:26 → S4NX 23:05
PROVIDERS: Obstetrics & Gynecology; Admitting Provider Obstetrics & Gynecology; Visit Provider Obstetrics & Gynecology
DX: O70.1 Second degree perineal laceration during delivery (principal); Z37.0 Single live birth; Z3A.39 39 weeks gestation of pregnancy; R00.0 Tachycardia, unspecified; O99.892 Other specified diseases and conditions complicating childbirth
CPT/HCPCS: 36415; 59409; 71045; 80053; 80307; 81001; 83605; 83880; 84443; 84484; 85025; 85610; 85730; 86780; 86850; 86900; 86901; 87040; 87070; 87075; 87086; 87205; 87502; 87811; 93005; 94762; J0131; J2543; J2590; J2916; J3010; J3490; J7030; J7050; J7120; S0191; A9270